=== PATIENT | male | born 1960 | race Hispanic/Latino ===

== ENCOUNTER 2018-06-01 01:29 | Emergency (ER) | payer SELFPAY ==
[2018-06-01 02:00] VITALS: RESP 18
[2018-06-01] MEDS ORDERED: Sodium Chloride 0.9% 1,000 ML IV STA ×2 (03:08→04:59)
--- NOTE | 2018-06-01 03:14 | ED PDOC ---
HPI: Abdomen Time Seen by Provider: 06/01/18 01:40 Chief Complaint (Nursing): GI Problem Chief Complaint (Provider): GI Problem History Per: Patient History/Exam Limitations: no limitations Onset/Duration Of Symptoms: Other (Tonight) Quality Of Discomfort: Cramping Associated Symptoms: Diarrhea. denies: Fever, Vomiting Additional Complaint(s): 57 years old male with a history of hypertension and melanoma with surgery but no radiation or chemotherapy presents to ER for an evaluation of one episode of diarrhea associated with cramping abdominal pain onset tonight. Patient reports blood in stools that also started tonight. He states he drank a bottle of wine at 5 pm yesterday. Patient denies fever and vomiting. PMD: Maximo Jerome Past Medical History Reviewed: Historical Data, Nursing Documentation, Vital Signs Vital Signs: Last Vital Signs Temp 98.6 F 06/01/18 01:57 Pulse 106 H 06/01/18 01:57 Resp 18 06/01/18 01:57 BP 157/88 H 06/01/18 01:57 Pulse Ox 100 06/01/18 01:57 - Medical History PMH: HTN Other PMH: Melanoma - Family History Family History: States: Unknown Family Hx - Social History Current smoker - smoking cessation education provided: Yes (a pack/day) Alcohol: > 2 Drinks/Day - Home Medications Home Medications: Ambulatory Orders Medication Instructions Recorded Ciprofloxacin HCl [Cipro] 500 mg PO BID #20 tab 06/01/18 Metronidazole [Flagyl] 500 mg PO TID #30 tablet 06/01/18 - Allergies Allergies/Adverse Reactions: Allergies Allergy/AdvReac Type Severity Reaction Status Date / Time Tetanus Vaccines and Toxoid Allergy RASH Verified 06/01/18 01:57 Review of Systems ROS Statement: Except As Marked, All Systems Reviewed And Found Negative Constitutional: Negative for: Fever Gastrointestinal: Positive for: Abdominal Pain, Diarrhea, Hematochezia. Negative for: Vomiting Physical Exam - Reviewed Nursing Documentation Reviewed: Yes Vital Signs Reviewed: Yes - Physical Exam Appears: Positive for: No Acute Distress (Obese) Head Exam: Positive for: ATRAUMATIC, NORMOCEPHALIC Skin: Positive for: Normal Color, Warm, Dry ENT: Positive for: Normal ENT Inspection Neck: Positive for: Normal Cardiovascular/Chest: Positive for: Regular Rate, Rhythm. Negative for: Murmur Respiratory: Positive for: Normal Breath Sounds. Negative for: Respiratory Distress Gastrointestinal/Abdominal: Positive for: Normal Exam, Soft. Negative for: Tenderness Back: Positive for: Normal Inspection. Negative for: L CVA Tenderness, R CVA Tenderness Neurological/Psych: Positive for: Awake, Alert, Oriented (x3) - Laboratory Results Result Diagrams: 06/01/18 02:45 06/01/18 06:52 - ECG O2 Sat by Pulse Oximetry: 100 (RA) Pulse Ox Interpretation: Normal Medical Decision Making Medical Decision Making: Time: 227 Initial Plan: --Abdomen/Pelvis CT --Alcohol serum --CMP --CBC --Urinalysis 421 Abdomen/Pelvis CT FINDINGS: Diffuse colonic diverticulosis. Diffuse thickening of the descending and sigmoid colon. The visualized lung bases are unremarkable. Normal unenhanced liver. Cholelithiasis and nondilated extrahepatic biliary system. Normal unenhanced spleen. Normal pancreas. Normal bilateral adrenal glands. Normal size of the right kidney. There is no right renal mass. There are no right renal calculi. There is no right hydronephrosis. Normal visualized right ureter. Normal size of the left kidney. There is no left renal mass. There are no left renal calculi. There is no left hydronephrosis. Normal visualized left ureter. Normal visualized stomach. Normal small intestine. The appendix is visualized and appears normal. There is no demonstrated peritoneal fluid. Normal abdominal aorta. Normal inferior vena cava. Normal retroperitoneum. Mild diffuse thickening of the urinary bladder. There is no pelvic mass lesion or lymphadenopathy. There is no pelvic fluid. Normal abdominal wall. Moderate diffuse spondylosis. IMPRESSION: Ucomplicated colitis of the descending and sigmoid colon. No associated perforation or abscess formation. Mild thickening of the distended bladder. Cholelithiasis without acute cholecystitis. [address] results, feels improved, tolerated po --Labs reviewed and show low levels of sodium --Will give IV fluids and reevaluate 07 Patient signed out to Dr. Paniagua, pending repeat chemistry/dispo. ScribeAttestation: Documented byDeena Madrid, acting as a scribe for Renae Cain MD. Provider ScribeAttestation: All medical record entries made by the Scribe were at my direction and personally dictated by me. I have reviewed the chart and agree that the record accurately reflects my personal performance of the history, physical exam, medical decision making, and the department course for this patient. I have also personally directed, reviewed, and agree with the discharge instructions and disposition. Disposition - Clinical Impression Clinical Impression: Colitis, Hyponatremia - Patient ED Disposition Is Patient to be Admitted: Transfer of Care Counseled Patient/Family Regarding: Studies Performed, Diagnosis, Need For Followup - Disposition Referrals: Maximo Jerome MD [Primary Care Provider] - 06/03/18 Disposition: Transfer of Care Disposition Time: 07:00 Condition: IMPROVED Additional Instructions: follow up in the clinic outpatient in 2 days return to the ED with any worsening or concerning symptoms Prescriptions: Ciprofloxacin HCl [Cipro] 500 mg PO BID #20 tab Metronidazole [Flagyl] 500 mg PO TID #30 tablet Instructions: Colitis, Hyponatremia Forms: [facility] (Ukrainian) Patient Signed Over To: Wyatt Paniagua (pending repeat chem)
[2018-06-01 03:35] LABS: BASO # 0.1 K/uL (0.0-0.2); BASO % 0.7 % (0.0-2.0); EOS % 0.5 % (0.0-4.0); HEMOGLOBIN 13.1 g/dL (12.0-18.0); LYMPH # 2.1 K/uL (1.0-4.3); LYMPH % 23.2 % (20.0-40.0); MEAN CELL VOLUME 85.8 fl (80.0-94.0); MEAN CORPUSCULAR HEMOGLOBIN 29.5 pg (27.0-31.0); MEAN CORPUSCULAR HGB CONC 34.4 g/dL (33.0-37.0); MEAN PLATELET VOLUME 7.6 fl (7.2-11.7); MONO # 0.8 K/uL (0.0-0.8); MONO % 8.6 % (0.0-10.0); RBC 4.42 Mil/uL (4.40-5.90); RED CELL DISTRIBUTION WIDTH 12.5 % (11.5-14.5)
[2018-06-01 03:46] LABS: ALB/GLOB RATIO 1.3 (1.0-2.1); ALBUMIN 4.2 g/dL (3.5-5.0); ALT/SGPT 33 U/L (21-72); AST/SGOT 25 U/L (17-59); BLOOD UREA NITROGEN 11 mg/dl (9-20); CALCIUM 9.4 mg/dL (8.4-10.2); GFR NON-AFRICAN AMERICAN > 60
[2018-06-01 06:40] VITALS: BP 150/90; PULSE 91; TEMP 98.4
[2018-06-01 07:07] VITALS: O2SAT 100
[2018-06-01 07:13] LABS: ALB/GLOB RATIO 1.2 (1.0-2.1); ALBUMIN 3.5 g/dL (3.5-5.0); ALT/SGPT 33 U/L (21-72); AST/SGOT 20 U/L (17-59); BLOOD UREA NITROGEN 9 mg/dl (9-20); CALCIUM 8.5 mg/dL (8.4-10.2); GFR NON-AFRICAN AMERICAN > 60
--- NOTE | 2018-06-01 07:19 | ED PDOC ---
- Laboratory Results Result Diagrams: 06/01/18 02:45 06/01/18 06:52 Lab Results: Total Bilirubin 0.2 mg/dl (0.2-1.3) 06/01/18 06:52 AST 20 U/L (17-59) 06/01/18 06:52 ALT 33 U/L (21-72) 06/01/18 06:52 Alkaline Phosphatase 89 U/L (38-126) 06/01/18 06:52 Total Protein 6.4 G/DL (6.3-8.2) 06/01/18 06:52 Albumin 3.5 g/dL (3.5-5.0) 06/01/18 06:52 Globulin 2.8 gm/dL (2.2-3.9) 06/01/18 06:52 Albumin/Globulin Ratio 1.2 (1.0-2.1) 06/01/18 06:52 - ECG O2 Sat by Pulse Oximetry: 100 (RA) Pulse Ox Interpretation: Normal Medical Decision Making Medical Decision Makin Patient signed out to me by Dr. Cain pending repeat labs, reassessment and ER disposition. Patient resting comfortably at this time and is in no acute distress. 0821 Repeat labs reviewed, sodium level 127. Pain free. Chloride improved. Pt. wants to go home. AAOx3. Fu with pcp. ScribeAttestation: Documented byKarla Short, acting as a scribe for Wyatt Paniagua MD. Provider ScribeAttestation: All medical record entries made by the Scribe were at my direction and personally dictated by me. I have reviewed the chart and agree that the record accurately reflects my personal performance of the history, physical exam, medical decision making, and the department course for this patient. I have also personally directed, reviewed, and agree with the discharge instructions and disposition. Disposition Counseled Patient/Family Regarding: Studies Performed, Diagnosis, Need For Followup, Rx Given - Clinical Impression Clinical Impression: Colitis, Hyponatremia - POA Present On Arrival: None - Disposition Referrals: Maximo Jerome MD [Primary Care Provider] - 06/03/18 Disposition: Routine/Home Disposition Time: 08:26 Condition: IMPROVED Additional Instructions: follow up in the clinic outpatient in 2 days return to the ED with any worsening or concerning symptoms Prescriptions: Ciprofloxacin HCl [Cipro] 500 mg PO BID #20 tab Metronidazole [Flagyl] 500 mg PO TID #30 tablet Instructions: Colitis, Hyponatremia Forms: [facility] (Korean)
--- NOTE | 2018-06-01 12:47 | CT ---
Date of service: 06/01/2018 PROCEDURE: CT Abdomen and Pelvis without intravenous contrast HISTORY: Abdominal pain COMPARISON: CT abdomen with contrast from 02/09/2018 TECHNIQUE: CT scan of the abdomen and pelvis was performed without administration of intravenous contrast. Oral contrast was not administered. Coronal and sagittal reformatted images were obtained. Radiation dose: Total exam DLP = 871.1 mGy-cm. This CT exam was performed using one or more of the following dose reduction techniques: Automated exposure control, adjustment of the mA and/or kV according to patient size, and/or use of iterative reconstruction technique. FINDINGS: LOWER THORAX: The visualized lungs are clear. LIVER: Normal in size. No gross lesion or ductal dilatation. GALLBLADDER AND BILE DUCTS: There are multiple small calcified gallstones. No common bile duct dilatation. PANCREAS: Normal in size. No gross lesion or ductal dilatation. SPLEEN: Normal in size. ADRENALS: Normal in size. No discrete nodule. KIDNEYS AND URETERS: Both kidneys are normal in size. No hydronephrosis or nephrolithiasis. VASCULATURE: Normal in caliber. No aortic aneurysm. There are o aortic atherosclerotic calcification present. BOWEL: Evaluation of the bowel is limited in the absence of oral contrast. The small bowel loops are normal in caliber. There is moderate amount of stool in the ascending colon. There is apparent mild circumferential mural thickening of the descending colon with mild pericolonic inflammatory changes. There is also fluid in the left hemicolon. APPENDIX: Normal appendix. PERITONEUM: No free fluid. No free air. LYMPH NODES: No enlarged lymph nodes. BLADDER: The urinary bladder is well distended. There is moderate circumferential mural thickening of the urinary bladder wall. REPRODUCTIVE: The prostate gland is normal in size. BONES: No acute fracture. Within normal limits for the patient's age. OTHER FINDINGS: None. IMPRESSION: Findings may represent acute nonspecific infectious/inflammatory colitis involving the left hemicolon. No perforation or abscess. Circumferential mural thickening of the urinary bladder wall may represent cystitis in the appropriate clinical setting. Please correlate with urine analysis. A preliminary report was provided by [facility].
== END 2018-06-01 08:38 | disposition home or self-care (01) ==
LOC: H.ER 01:29
DX: K52.9 Noninfective gastroenteritis and colitis, unspecified (principal); E87.1 Hypo-osmolality and hyponatremia; K80.20 Calculus of gallbladder without cholecystitis without obstruction; F17.210 Nicotine dependence, cigarettes, uncomplicated; I10 Essential (primary) hypertension; Z85.820 Personal history of malignant melanoma of skin
CPT/HCPCS: 74176; 80053; 85025; 96360; 96361; 99284; G0480; J7030